=== PATIENT | female | born 1995 | race Caucasian/White ===

== ENCOUNTER 2018-10-13 17:53 | Emergency (ER) | payer OTHER ==
[~2018-10-13] VITALS: Ht 144.8 cm; Wt 42.4 kg
[2018-10-13 18:27] VITALS: BP 113/77
--- NOTE | 2018-10-13 19:17 | NUR ---
PT AMBULATED TO BED 1
--- NOTE | 2018-10-13 19:17 | NUR ---
C/O PRODUCTIVE COUGH AND NASAL CONGESTION X 1 WEEK. NO EVIDENCE OF LABORED RESPIRATIONS, 99% ON RA. NO EVIDENCE FO RETRACTIONS NOTED. DENIES CP/SOB. PT DENIES N/V/D; SKIN IS INTACT, PINK/WARM/DRY; AAOX4, PERRL, WITH EVEN AND STEADY GAIT; LUNGS CLEAR BL, BREATHING UNLABORED; HR EVEN AND REGULAR, BL PERIPHERAL PULSES PRESENT; BS ACTIVE X4, NO TENDERNESS TO PALPATION, NO HEPATOSPLENOMEGALLY PALPATED, RESONANT TO PERCUSSION; PT DENIES ANY FEVER, CP/SOB AT THIS TIME; PT STATES 0/10 PAIN AT THIS TIME; VSS; PATIENT POSITIONED FOR COMFORT; HOB ELEVATED; BEDRAILS UP X2; BED DOWN.
--- NOTE | 2018-10-13 20:00 | NUR ---
PT ON BED IN SUPINE POSITION EYES OPEN, RESPIS E/U, NO COMPLAINTS OF CP/SOB AT THIS TIME. NO REQUESTS AT THIS TIME.
[2018-10-13 20:07] LABS: BASOPHILS % (AUTO) 0.3 % (0.0-2.0); EOSINOPHILS % (AUTO) 0.2 % (0.0-4.0); HEMOGLOBIN 12.3 g/dL (12.0-16.0); LYMPHOCYTES # (AUTO) 1.7 K/uL (2.5-16.5); LYMPHOCYTES % (AUTO) 15.5 % (20.5-51.1); MEAN CORPUSCULAR HEMOGLOBIN 28 pg (27-31); MEAN CORPUSCULAR HGB CONC 32 g/dL (33-37); MEAN CORPUSCULAR VOLUME 87.3 fL (80-94); MONOCYTES # (AUTO) 0.8 K/uL (0.8-1.0); MONOCYTES % (AUTO) 7.7 % (1.7-9.3); NEUTROPHILS # (AUTO) 8.4 K/uL (1.8-7.7); NEUTROPHILS % (AUTO) 76.3 % (42.2-75.2); PLATELET COUNT (AUTO) 215 K/uL (140-450); RED BLOOD CELL COUNT(AUTO) 4.35 MIL/uL (4.20-5.40); RED CELL DISTRIBUTION WIDTH 12.6 % (11.6-13.7)
[2018-10-13 20:19] LABS: ANION GAP 10.6 (8-16); CARBON DIOXIDE 34.1 mmol/L (21-32); CREATININE 0.6 mg/dL (0.6-1.3); POTASSIUM 3.7 mmol/L (3.5-5.1)
[2018-10-13 20:25] LABS: ALBUMIN 3.6 g/dL (3.4-5.0); TOTAL BILIRUBIN 0.2 mg/dL (0.0-1.0)
--- NOTE | 2018-10-13 21:00 | NUR ---
PT SUPINE ON BED EYES OPEN, RESPIS E/U, DENIES CP/SOB AT THIS TIME. NO IDENTIFIED REQUESTS AT THIS TIME.
--- NOTE | 2018-10-13 21:10 | NUR ---
flu swab recollected
[2018-10-13 22:01] VITALS: BP 110/74
--- NOTE | 2018-10-13 22:01 | NUR ---
Patient discharged with v/s stable. Written and verbal after care instructions given and explained. Patient alert, oriented and verbalized understanding of instructions. Ambulatory with steady gait. All questions addressed prior to discharge. ID band removed. Patient advised to follow up with PMD. Rx of CODEINE PHOSPHATE/PROMETHAZINE HYDROCHLORIDE given. Patient educated on indication of medication including possible reaction and side effects. Opportunity to ask questions provided and answered.
== END 2018-10-13 22:01 | disposition home or self-care (01) ==
LOC: MED 17:53
DX: B34.9 Viral infection, unspecified (principal); I10 Essential (primary) hypertension; N28.9 Disorder of kidney and ureter, unspecified; E07.9 Disorder of thyroid, unspecified; Z88.6 Allergy status to analgesic agent; Z94.0 Kidney transplant status
CPT/HCPCS: 36415; 80053; 85025; 87081; 87804; 99283